=== PATIENT | female | born 1975 | race African-American/Black ===

== ENCOUNTER 2019-06-03 15:49 | Inpatient (IN) | payer BC, OTHER ==
[~2019-06-03] VITALS: Ht 160 cm; Wt 59.9 kg
[~2019-06-03 15:49] MED LIST: AUBAGIO; NORE-106 PO
[2019-06-03] MEDS ORDERED: SODIUM CHLORIDE 0.9% 1,000 ML IV ONE (20:04)
[2019-06-03] MEDS ORDERED: METHYLPREDNISOLONE SOD SUCC 125 MG/2 ML VIAL IV ONE (20:30)
[2019-06-03 22:49] LABS: BASOPHILS % 0.7 % (0.0-2.0); HEMOGLOBIN. 11.4 g/dL (12.0-16.0); LYMPHOCYTES % 32.4 % (20.0-50.0); MEAN CORPUSCULAR VOLUME 89.7 fL (81.0-99.0); MEAN PLATELET VOLUME 8.2 fl (7.4-10.4); MONOCYTES % 6.6 % (2.0-8.0); NEUTROPHILS % 59.3 % (40.0-76.0); PLATELET 267 x1000/uL (130-400); RED BLOOD CELL COUNT 3.79 mill/uL (4.2-5.4); RED CELL DISTRIBUTION WIDTH 13.7 % (11.6-14.6)
[2019-06-03 22:53] LABS: CHLORIDE 110 mEq/L (98-107); CLARITY URINE CLOUDY (CLEAR); COLOR URINE YELLOW (YELLOW); KETONES URINE TRACE (NEGATIVE); LEUKOCYTE ESTERASE URINE NEGATIVE (NEGATIVE); NITRITE URINE POSITIVE (NEGATIVE); OCCULT BLOOD URINE 1+ (NEGATIVE); PH URINE 5.5 (4.5-8.0); PROTEIN URINE 3+ (NEGATIVE); SPECIFIC GRAVITY URINE 1.038 (1.005-1.030)
[2019-06-03 22:57] LABS: HCG SCREEN NEGATIVE
[2019-06-03 23:02] LABS: CREATINE KINASE 110 IU/L (26-192)
[2019-06-03 23:04] LABS: CREATINE KINASE MB FRACTION 1.3 ng/mL (0.5-3.6)
[2019-06-04] MEDS ORDERED: CEFTRIAXONE 1 G PREMIX 50 ML IV SCH (01:45)
[2019-06-04] MEDS ORDERED: ACETAMINOPHEN 325MG TABLET PO PRN (10:00)
[2019-06-04] MEDS ORDERED: CEFTRIAXONE 1 G PREMIX 50 ML IV ONE (10:00)
[2019-06-04] MEDS ORDERED: ONDANSETRON HCL 4MG/2ML INJ IV PRN (10:00)
[2019-06-04] MEDS ORDERED: METHYLPREDNISOLONE SOD SUCC 40 MG/ML VIAL IV SCH (10:00)
[2019-06-04] MEDS ORDERED: METHYLPREDNISOLONE SOD SUCC 1,000 MG in DEXT 5% WATER 100 ML IV NR (10:45)
[2019-06-04 13:17] LABS: *AMPHETAMINES SCREEN URINE NEGATIVE (NEGATIVE); *BARBITURATES SCREEN URINE NEGATIVE (NEGATIVE); *BENZODIAZEPINES SCREEN URINE NEGATIVE (NEGATIVE); *COCAINE SCREEN URINE NEGATIVE (NEGATIVE); METHADONE URINE SCREEN NEGATIVE (NEGATIVE); OPIATES URINE SCREEN NEGATIVE (NEGATIVE)
[2019-06-04 13:18] LABS: PHENCYCLIDINE URINE SCREEN NEGATIVE (NEGATIVE)
[2019-06-04 13:22] LABS: CANNABINOID URINE SCREEN PRESUMTIVE POSITIVE (NEGATIVE)
[2019-06-04] MEDS: GABAPENTIN 300MG CAPSULE PO SCH ×2 (13:38→21:26)
[2019-06-04 18:17] VITALS: BP 139/87
[2019-06-04] MEDS: HYDROCODONE/ACETAMINOPHEN 5/325MG TABLET PO PRN (18:40)
[2019-06-04 20:00] VITALS: BP 129/78
[2019-06-04 21:00] VITALS: BP 129/87
[2019-06-04] MEDS ORDERED: FAMOTIDINE 20MG TABLET PO SCH (21:00)
[2019-06-04] MEDS ORDERED: FAMOTIDINE 40MG TABLET PO SCH (21:28)
[2019-06-04] MEDS: FAMOTIDINE 20MG TABLET PO SCH (22:58)
[2019-06-05] VITALS: BP 143/89
[2019-06-05] MEDS ORDERED: CEFTRIAXONE 1 G PREMIX 50 ML IV NR (01:00)
[2019-06-05 04:00] VITALS: BP 140/66
[2019-06-05] MEDS ORDERED: GABA-290 PO (04:44)
[2019-06-05] MEDS ORDERED: TERI14TA PO (04:44)
[2019-06-05] MEDS: GABAPENTIN 300MG CAPSULE PO SCH ×3 (05:49→21:14)
[2019-06-05 07:14] LABS: BASOPHILS % 0.4 % (0.0-2.0); HEMATOCRIT. 34.3 % (36.0-48.0); HEMOGLOBIN. 11.4 g/dL (12.0-16.0); LYMPHOCYTES % 8.2 % (20.0-50.0); MEAN CORPUSCULAR HEMOGLOBIN 29.8 pg (28.0-32.0); MEAN CORPUSCULAR VOLUME 89.5 fL (81.0-99.0); MEAN PLATELET VOLUME 8.8 fl (7.4-10.4); MONOCYTES % 5.1 % (2.0-8.0); NEUTROPHILS % 86.3 % (40.0-76.0); PLATELET 271 x1000/uL (130-400); RED BLOOD CELL COUNT 3.83 mill/uL (4.2-5.4); RED CELL DISTRIBUTION WIDTH 13.8 % (11.6-14.6)
[2019-06-05 07:58] LABS: CHLORIDE 109 mEq/L (98-107)
[2019-06-05 08:00] VITALS: BP 123/70
[2019-06-05] MEDS ORDERED: METHYLPREDNISOLONE SOD SUCC 1,000 MG in DEXT 5% WATER 100 ML IV SCH (09:00)
[2019-06-05] MEDS: FAMOTIDINE 20MG TABLET PO SCH ×2 (09:43→20:10)
[2019-06-05] MEDS: HYDROCODONE/ACETAMINOPHEN 5/325MG TABLET PO PRN ×3 (10:03→20:09)
[2019-06-05 12:00] VITALS: BP 128/87
[2019-06-05] MEDS ORDERED: INFLUENZA VIRUS VACCINE(AFLURIA) 0.5ML SYR IM ONE (12:00)
[2019-06-05 16:00] VITALS: BP 118/63
[2019-06-05 20:00] VITALS: BP 120/76
[2019-06-06] VITALS: BP 134/84
[2019-06-06] MEDS ORDERED: CEFTRIAXONE 1 G PREMIX 50 ML IV SCH (01:00)
[2019-06-06 04:00] VITALS: BP 119/79
[2019-06-06] MEDS: GABAPENTIN 300MG CAPSULE PO SCH ×2 (05:53→15:00)
[2019-06-06 08:00] VITALS: BP 118/74
[2019-06-06] MEDS ORDERED: METHYLPREDNISOLONE SOD SUCC 1,000 MG in DEXT 5% WATER 100 ML IV SCH (09:00)
[2019-06-06] MEDS: FAMOTIDINE 20MG TABLET PO SCH (09:17)
[2019-06-06 12:00] VITALS: BP 121/93
[2019-06-06 16:57] VITALS: BP 113/75
[2019-06-06] MEDS: HYDROCODONE/ACETAMINOPHEN 5/325MG TABLET PO PRN (17:28)
[2019-06-06] MEDS ORDERED: CITA10SO PO (23:49)
== END 2019-06-06 18:30 | DRG 871 ==
LOC: ER 15:49 → ENRESERV 06-04 17:17 → 7WST 06-04 18:01
PROVIDERS: ADMIT Physical Medicine & Rehabilitation Spinal Cord Injury Medicine; ATTEND Internal Medicine
DX: A41.9 Sepsis, unspecified organism (principal); G82.50 Quadriplegia, unspecified; N39.0 Urinary tract infection, site not specified; D64.9 Anemia, unspecified; R26.9 Unspecified abnormalities of gait and mobility; E87.8 Other disorders of electrolyte and fluid balance, not elsewhere classified; G35 Multiple sclerosis; Z98.891 History of uterine scar from previous surgery; Z88.2 Allergy status to sulfonamides; Z79.899 Other long term (current) drug therapy
CPT/HCPCS: 36415; 71045; 80048; 80053; 80305; 81003; 82550; 82553; 83880; 84484; 84703; 85025; 90686; 93005; 97116; 97162; 97165; 97530; 99285; C1893; J0696; J2930; J7030; J7060

== ENCOUNTER 2019-06-06 18:10 | Inpatient (IN) | payer OTHER ==
[~2019-06-06] VITALS: Ht 160 cm; Wt 59.9 kg
[~2019-06-06 18:10] MED LIST changes: +GABA-290 PO; +TERI14TA PO
[2019-06-06 19:17] VITALS: BP 140/88
[2019-06-06] MEDS ORDERED: ONDANSETRON HCL 4MG TABLET PO PRN (19:45)
[2019-06-06 20:00] VITALS: BP_SYST 132; BP_SYST 139; BP_DIAS 68; BP_DIAS 72
[2019-06-06] MEDS: FAMOTIDINE 20MG TABLET PO SCH ×2 (21:00→21:40)
[2019-06-06] MEDS: GABAPENTIN 300MG CAPSULE PO SCH ×2 (21:40→22:57)
[2019-06-06] MEDS: HYDROCODONE/ACETAMINOPHEN 5/325MG TABLET PO PRN (21:40)
[2019-06-06] MEDS: CEFTRIAXONE 1 G PREMIX 50 ML IV SCH (22:54)
[2019-06-06] MEDS ORDERED: CITA10SO PO (23:49)
[2019-06-07 07:16] LABS: BASOPHILS % 0.1 % (0.0-2.0); HEMATOCRIT. 33.9 % (36.0-48.0); HEMOGLOBIN. 11.3 g/dL (12.0-16.0); LYMPHOCYTES % 7.3 % (20.0-50.0); MEAN CORPUSCULAR HEMOGLOBIN 29.8 pg (28.0-32.0); MEAN CORPUSCULAR VOLUME 89.6 fL (81.0-99.0); NEUTROPHILS % 87.6 % (40.0-76.0); PLATELET 228 x1000/uL (130-400); RED BLOOD CELL COUNT 3.78 mill/uL (4.2-5.4); RED CELL DISTRIBUTION WIDTH 13.8 % (11.6-14.6)
[2019-06-07 08:04] LABS: CHLORIDE 108 mEq/L (98-107)
[2019-06-07 08:06] VITALS: BP 105/61
[2019-06-07] MEDS: METHYLPREDNISOLONE SOD SUCC 1,000 MG in DEXT 5% WATER 100 ML IV SCH (10:08)
[2019-06-07] MEDS: LO LOESTRIN FE PO SCH (10:08)
[2019-06-07] MEDS: CITALOPRAM 20MG TABLET PO SCH (10:09)
[2019-06-07] MEDS: HYDROCODONE/ACETAMINOPHEN 5/325MG TABLET PO PRN (10:24)
[2019-06-07] MEDS: GABAPENTIN 300MG CAPSULE PO SCH ×2 (14:27→21:25)
[2019-06-07] MEDS ORDERED: BISACODYL 10MG SUPP PR PRN (18:15)
[2019-06-07] MEDS ORDERED: NA PHOS,M-B/NA PHOS,DI-BA ENEMA 118ML PR PRN (18:15)
[2019-06-07] MEDS ORDERED: LACTULOSE 20G/30ML UDC PO PRN (18:15)
[2019-06-07 20:00] VITALS: BP 129/88
[2019-06-07] MEDS: FAMOTIDINE 20MG TABLET PO SCH (21:25)
[2019-06-07] MEDS: DOCUSATE SODIUM 100MG CAPSULE PO SCH (21:30)
[2019-06-07] MEDS: CEFTRIAXONE 1 G PREMIX 50 ML IV SCH (21:46)
[2019-06-08] MEDS: GABAPENTIN 300MG CAPSULE PO SCH ×3 (06:17→21:23)
[2019-06-08] MEDS: HYDROCODONE/ACETAMINOPHEN 5/325MG TABLET PO PRN ×2 (08:00→12:33)
[2019-06-08 08:47] LABS: BASOPHILS % 0.2 % (0.0-2.0); HEMATOCRIT. 34.8 % (36.0-48.0); HEMOGLOBIN. 11.8 g/dL (12.0-16.0); LYMPHOCYTES % 7.7 % (20.0-50.0); MEAN CORPUSCULAR HEMOGLOBIN 30.4 pg (28.0-32.0); MEAN CORPUSCULAR VOLUME 89.4 fL (81.0-99.0); MEAN PLATELET VOLUME 9.2 fl (7.4-10.4); NEUTROPHILS % 85.1 % (40.0-76.0); PLATELET 260 x1000/uL (130-400); RED BLOOD CELL COUNT 3.89 mill/uL (4.2-5.4); RED CELL DISTRIBUTION WIDTH 13.4 % (11.6-14.6)
[2019-06-08] MEDS: METHYLPREDNISOLONE SOD SUCC 1,000 MG in DEXT 5% WATER 100 ML IV SCH (08:48)
[2019-06-08] MEDS: CITALOPRAM 20MG TABLET PO SCH (08:48)
[2019-06-08] MEDS: FAMOTIDINE 20MG TABLET PO SCH ×2 (08:48→21:23)
[2019-06-08] MEDS: DOCUSATE SODIUM 100MG CAPSULE PO SCH ×2 (08:48→16:19)
[2019-06-08] MEDS: LO LOESTRIN FE PO SCH (08:48)
[2019-06-08 08:54] LABS: CHLORIDE 105 mEq/L (98-107)
[2019-06-08 09:03] LABS: PHOSPHORUS 2.7 mg/dL (2.5-4.9); TOTAL IRON BINDING CAPACITY 388 ug/dL (250-450)
[2019-06-08 09:05] LABS: CREATINE KINASE 50 IU/L (26-192)
[2019-06-08 09:24] VITALS: BP 123/74
[2019-06-08 09:36] LABS: FOLIC ACID (FOLATE) SERUM 6.2 ng/mL (>5.38)
[2019-06-08] MEDS: LIDOCAINE 5% PATCH TOP SCH ×2 (10:51→15:29)
[2019-06-08] MEDS: ACETAMINOPHEN 325MG TABLET PO PRN (16:42)
[2019-06-08 20:00] VITALS: BP 149/91
[2019-06-08] MEDS: CEFTRIAXONE 1 G PREMIX 50 ML IV SCH (21:25)
[2019-06-09] MEDS: GABAPENTIN 300MG CAPSULE PO SCH ×3 (06:14→21:12)
[2019-06-09 08:07] VITALS: BP 110/72
[2019-06-09] MEDS: ACETAMINOPHEN 325MG TABLET PO PRN ×2 (08:59→16:56)
[2019-06-09] MEDS: FAMOTIDINE 20MG TABLET PO SCH ×2 (09:00→21:12)
[2019-06-09] MEDS: LIDOCAINE 5% PATCH TOP SCH (09:01)
[2019-06-09] MEDS: PREDNISONE 20MG TABLET PO SCH (09:01)
[2019-06-09] MEDS: DOCUSATE SODIUM 100MG CAPSULE PO SCH ×2 (09:01→16:46)
[2019-06-09] MEDS: LO LOESTRIN FE PO SCH (09:01)
[2019-06-09] MEDS: CITALOPRAM 20MG TABLET PO SCH (09:01)
[2019-06-09 20:00] VITALS: BP 139/92
[2019-06-09] MEDS: CEFTRIAXONE 1 G PREMIX 50 ML IV SCH (21:12)
[2019-06-10] MEDS: GABAPENTIN 300MG CAPSULE PO SCH (05:41)
[2019-06-10] MEDS: PREDNISONE 20MG TABLET PO SCH (08:06)
[2019-06-10] MEDS: DOCUSATE SODIUM 100MG CAPSULE PO SCH ×2 (08:06→16:26)
[2019-06-10] MEDS: FAMOTIDINE 20MG TABLET PO SCH ×2 (08:06→22:29)
[2019-06-10] MEDS: LO LOESTRIN FE PO SCH (08:07)
[2019-06-10] MEDS: LIDOCAINE 5% PATCH TOP SCH (08:07)
[2019-06-10] MEDS: CITALOPRAM 20MG TABLET PO SCH (08:07)
[2019-06-10 08:22] VITALS: BP 130/67
[2019-06-10] MEDS: GABAPENTIN 400MG CAPSULE PO SCH ×2 (13:32→22:29)
[2019-06-10 20:00] VITALS: BP 133/80
[2019-06-10] MEDS: CEFTRIAXONE 1 G PREMIX 50 ML IV SCH (22:29)
[2019-06-10] MEDS: ACETAMINOPHEN 325MG TABLET PO PRN (22:38)
[2019-06-11] MEDS: GABAPENTIN 400MG CAPSULE PO SCH ×3 (05:46→21:17)
[2019-06-11 07:58] VITALS: BP 127/82
[2019-06-11] MEDS: PREDNISONE 20MG TABLET PO SCH (08:14)
[2019-06-11] MEDS: DOCUSATE SODIUM 100MG CAPSULE PO SCH ×2 (08:14→16:37)
[2019-06-11] MEDS: FAMOTIDINE 20MG TABLET PO SCH ×2 (08:14→20:26)
[2019-06-11] MEDS: LO LOESTRIN FE PO SCH (08:15)
[2019-06-11] MEDS: CITALOPRAM 20MG TABLET PO SCH (08:15)
[2019-06-11] MEDS: LIDOCAINE 5% PATCH TOP SCH (08:16)
[2019-06-11] MEDS: ACETAMINOPHEN 325MG TABLET PO PRN ×2 (12:59→20:26)
[2019-06-11 20:00] VITALS: BP 154/91
[2019-06-11] MEDS: CEFTRIAXONE 1 G PREMIX 50 ML IV SCH (20:27)
[2019-06-12 06:09] LABS: 25-HYDROXY VITAMIN D3 20 ng/mL (.)
[2019-06-12] MEDS: GABAPENTIN 400MG CAPSULE PO SCH ×3 (06:14→21:41)
[2019-06-12 07:13] LABS: BASOPHILS % 0.2 % (0.0-2.0); EOSINOPHILS % 0.5 % (0.0-5.0); HEMATOCRIT. 35.5 % (36.0-48.0); HEMOGLOBIN. 11.6 g/dL (12.0-16.0); LYMPHOCYTES % 32.3 % (20.0-50.0); MEAN CORPUSCULAR HEMOGLOBIN 29.6 pg (28.0-32.0); MEAN CORPUSCULAR VOLUME 90.3 fL (81.0-99.0); MEAN PLATELET VOLUME 8.6 fl (7.4-10.4); PLATELET 273 x1000/uL (130-400); RED BLOOD CELL COUNT 3.93 mill/uL (4.2-5.4); RED CELL DISTRIBUTION WIDTH 13.9 % (11.6-14.6)
[2019-06-12 08:00] VITALS: BP 117/69
[2019-06-12 08:08] LABS: CHLORIDE 106 mEq/L (98-107)
[2019-06-12] MEDS: LIDOCAINE 5% PATCH TOP SCH (08:35)
[2019-06-12] MEDS: CITALOPRAM 20MG TABLET PO SCH (08:36)
[2019-06-12] MEDS: DOCUSATE SODIUM 100MG CAPSULE PO SCH ×2 (08:36→18:02)
[2019-06-12] MEDS: PREDNISONE 20MG TABLET PO SCH (08:36)
[2019-06-12] MEDS: LO LOESTRIN FE PO SCH (08:38)
[2019-06-12] MEDS: FAMOTIDINE 20MG TABLET PO SCH ×2 (10:23→20:47)
[2019-06-12] MEDS ORDERED: ERGOCALCIFEROL 50000UNITS CAPSULE PO SCH (17:00)
[2019-06-12 20:00] VITALS: BP 122/86
[2019-06-12] MEDS: ACETAMINOPHEN 325MG TABLET PO PRN (20:47)
[2019-06-12] MEDS: CEFTRIAXONE 1 G PREMIX 50 ML IV SCH (20:47)
[2019-06-13] MEDS: GABAPENTIN 400MG CAPSULE PO SCH ×3 (06:08→21:26)
[2019-06-13] MEDS: HYDROCODONE/ACETAMINOPHEN 5/325MG TABLET PO PRN ×2 (08:22→14:16)
[2019-06-13] MEDS: LIDOCAINE 5% PATCH TOP SCH (08:22)
[2019-06-13 08:26] VITALS: BP 131/83
[2019-06-13] MEDS ORDERED: PREDNISONE 20MG TABLET PO SCH (09:45)
[2019-06-13] MEDS: FAMOTIDINE 20MG TABLET PO SCH ×2 (09:51→21:25)
[2019-06-13] MEDS: DOCUSATE SODIUM 100MG CAPSULE PO SCH ×3 (09:51→17:00)
[2019-06-13] MEDS: CITALOPRAM 20MG TABLET PO SCH (09:52)
[2019-06-13] MEDS: LO LOESTRIN FE PO SCH (09:52)
[2019-06-13 20:00] VITALS: BP 111/58
[2019-06-13] MEDS: CEFTRIAXONE 1 G PREMIX 50 ML IV SCH (21:26)
[2019-06-14] MEDS: ACETAMINOPHEN 325MG TABLET PO PRN ×2 (06:01→16:27)
[2019-06-14] MEDS: GABAPENTIN 400MG CAPSULE PO SCH ×3 (06:01→21:47)
[2019-06-14 08:00] VITALS: BP 115/78
[2019-06-14] MEDS: PREDNISONE 20MG TABLET PO SCH (08:09)
[2019-06-14] MEDS: LIDOCAINE 5% PATCH TOP SCH (08:10)
[2019-06-14] MEDS: HYDROCODONE/ACETAMINOPHEN 5/325MG TABLET PO PRN ×2 (08:10→12:57)
[2019-06-14] MEDS: FAMOTIDINE 20MG TABLET PO SCH ×2 (08:10→21:48)
[2019-06-14] MEDS: DOCUSATE SODIUM 100MG CAPSULE PO SCH ×2 (08:11→16:01)
[2019-06-14] MEDS: CITALOPRAM 20MG TABLET PO SCH (08:11)
[2019-06-14] MEDS: LO LOESTRIN FE PO SCH (08:11)
[2019-06-14 20:00] VITALS: BP 145/86
[2019-06-15] MEDS: GABAPENTIN 400MG CAPSULE PO SCH (05:46)
[2019-06-15] MEDS: FAMOTIDINE 20MG TABLET PO SCH (05:46)
[2019-06-15 08:00] VITALS: BP 140/94
[2019-06-15] MEDS: HYDROCODONE/ACETAMINOPHEN 5/325MG TABLET PO PRN (08:43)
[2019-06-15] MEDS: DOCUSATE SODIUM 100MG CAPSULE PO SCH (09:00)
[2019-06-15] MEDS: CITALOPRAM 20MG TABLET PO SCH (09:52)
[2019-06-15] MEDS: LO LOESTRIN FE PO SCH (09:52)
[2019-06-15] MEDS: LIDOCAINE 5% PATCH TOP SCH (09:57)
[2019-06-15] MEDS: PREDNISONE 20MG TABLET PO SCH (09:59)
[2019-06-15 11:50] VITALS: BP 140/94
== END 2019-06-15 16:22 | disposition home health service (06) | DRG 58 ==
PROVIDERS: ADMIT Physical Medicine & Rehabilitation Spinal Cord Injury Medicine; ATTEND Internal Medicine
DX: G35 Multiple sclerosis (principal); G82.50 Quadriplegia, unspecified; N39.0 Urinary tract infection, site not specified; E44.0 Moderate protein-calorie malnutrition; E87.8 Other disorders of electrolyte and fluid balance, not elsewhere classified; D64.9 Anemia, unspecified; M79.609 Pain in unspecified limb; R26.9 Unspecified abnormalities of gait and mobility; R53.81 Other malaise; Z88.2 Allergy status to sulfonamides; Z68.23 Body mass index [BMI] 23.0-23.9, adult; Z82.49 Family history of ischemic heart disease and other diseases of the circulatory system
CPT/HCPCS: 36415; 80053; 82306; 82550; 82607; 82728; 82746; 83036; 83540; 83550; 83735; 84100; 84134; 84443; 85025; 93970; 97110; 97112; 97116; 97150; 97162; 97166; 97530; 97535; J0696; J2930; J7060; J7512